=== PATIENT | female | born 1985 | race Caucasian/White ===

== ENCOUNTER → 2019-12-02 13:33 | Outpatient (CLI) | payer MEDICAID, SELFPAY ==
--- NOTE | 2019-12-02 13:42 | MRI_ITS ---
STUDY: MRI CERVICAL SPINE WITHOUT CONTRAST REASON FOR EXAM: Female, 34 years old. spinal stenosis, cervicalgia, radiculopathy pain rt arm Tgt; lt arm TECHNIQUE: Standardized fat and water weighted pulse sequences were obtained in the sagittal and axial planes. COMPARISON: None FINDINGS: Normal foramen magnum and brainstem-cervical cord junction. Normal craniovertebral junction. Normal anterior atlantoaxial articulation. Normal odontoid process. There is straightening of the normal cervical lordosis. C2-3: Minimal disc desiccation otherwise normal. C3-4: Minimal disc desiccation otherwise normal C4-5: Normal endplates. The disc spaces moderately narrowed. A 5.5 mm right paracentral slightly inferior subligamentous extrusion is present resulting in mild compression on the right anterior aspect of the cord and of the exiting nerve root proximal to the foraminal opening. Mild right foraminal stenosis is present but no additional compression is demonstrated within the foramen. Normal left neural foramen. C5-6: Normal endplates. Normal disc height and morphology. Normal central canal and intervertebral neural foramina. C6-7: Normal endplates. Normal disc height and morphology. Normal central canal and intervertebral neural foramina. C7-T1: Normal endplates. Normal disc height, signal and morphology. Normal central canal and intervertebral neural foramina. Normal cervical cord. Normal visualized soft tissue structures. MRI/Spine Cervical (Routine) IMPRESSION: 1. C4-C5 right paracentral disc protrusion resulting and compression on the right and anterior aspect of the cord and compression of the exiting nerve root. Electronically Signed: Jose E Nassar MD at 16:47 EDT , Service support ,
== END ==
DX: M48.02 Spinal stenosis, cervical region (principal); M54.2 Cervicalgia
CPT/HCPCS: 72141

== ENCOUNTER → 2020-04-15 | Outpatient (CLI) | payer MEDICAID, SELFPAY ==
--- NOTE | 2020-04-15 13:32 | MRI_ITS ---
STUDY: MRI BRAIN WITHOUT CONTRAST REASON FOR EXAM: Female, 35 years old. garvey with left eye lid drooping x 1 year TECHNIQUE: Standardized multiplanar fat and water weighted pulse sequences were obtained. COMPARISON: None. FINDINGS: Normal size of the ventricles and extra-axial spaces for the patient''s age. Normal white matter tracts of the supratentorial brain. There is no evidence for recent intracranial ischemia or other cause of cytotoxic edema on diffusion weighted imaging (DWI). Normal T2* images of the brain without demonstrated susceptibility artifact. There is no demonstrated hemosiderin stain. Normal bilateral basal ganglia. Normal thalami. There is no extra-axial fluid accumulation. Normal flow voids within the major intracranial circulation suggesting patency by spin echo criteria. Normal sella turcica, pituitary gland, infundibular stalk, optic chiasm and hypothalamus. Normal tectal plate and pineal gland. Normal midbrain, lester and medulla. Normal cerebellum. Normal basal cisterns. Normal bilateral temporal bones. Normal bilateral internal auditory canals. No demonstrated orbital abnormality, within the constraints of a routine brain study. Normal visualized paranasal sinuses. Normal calvarium and skull base. Normal visualized soft tissue structures. Normal visualized upper cervical spine. MRI/Brain without Contrast IMPRESSION: Normal unenhanced MRI of the brain. Electronically Signed: Evangelist Hopson MD at 15:02 EDT Tel , Service support ,
== END | disposition home or self-care (01) ==
LOC: MRI 13:26
PROVIDERS: Referring Provider Psychiatry & Neurology Sleep Medicine; Visit Provider Psychiatry & Neurology Sleep Medicine
DX: G44.89 Other headache syndrome (principal); H02.402 Unspecified ptosis of left eyelid
CPT/HCPCS: 70551

== ENCOUNTER 2020-09-26 12:15 | Emergency (ER) | payer MEDICAID, SELFPAY ==
[2020-09-26 12:16] VITALS: BP 144/91; PULSE 85; RESP 18; TEMP 36.4; O2SAT 99; BMI 45.1
--- NOTE | 2020-09-26 12:32 | RAD_ITS ---
STUDY: X-RAY - RIGHT SHOULDER REASON FOR EXAM: Female, 35 years old. Injury/Pain TECHNIQUE: For view(s) of the shoulder. COMPARISON: None. FINDINGS: Normal glenohumeral articulation. Normal acromioclavicular joint. Normal acromion. Normal humeral head and visualized proximal humerus. The soft tissue structures are unremarkable. Normal visualized pulmonary apex. RAD/Shoulder min 2 Views IMPRESSION: Normal x-ray examination of the shoulder. Electronically Signed: Evangelist Hopson MD at 12:59 EST Tel , Service support ,
--- NOTE | 2020-09-26 12:33 | ED.DCSUM_ITS ---
- ER Visit Summary Date of Service: 09/26/20 Chief Complaint: Right-sided neck and shoulder pain History of Present Illness: The patient is a 35 F who presents with pain in the right side of her neck and right shoulder that has been getting worse over the past week. Patient denies any trauma or injury. Patient has a history of a herniated disc at C4-5. Patient has been acupuncture for this. Patient states her insurance company denied an injection. Patient states she sees a spine and pain specialist and has an appointment with them next week. Patient denies any new trauma or injury. Patient does admit to some tingling down her right arm. Patient states the pain is worse with certain positions. Patient states nothing seems to be helping with the pain. Physical Examination: Vital signs are stable. Patient is afebrile. Patient is in no acute distress. Strength is 4/5 in the right tricep. Otherwise strength is 5/5 in the upper extremities bilaterally. There is decreased sensation to light touch over the right thumb and index finger. Otherwise sensation is inta ct bilaterally. Deep tendon reflexes were 1+/4 bilaterally in the upper extremities. There is tenderness to palpation over the right cervical paraspinal muscle. There is some mild spasm. There is also tenderness over the right shoulder area and right trapezius muscle. There is no bony crepitance or step-off. There is no obvious deformity. Range of motion was slightly limited in all motions of the right shoulder secondary to pain. Test Results: X-rays of the right shoulder were obtained. There are 4 views. On my interpretation, there is no acute fracture or dislocation. There are no degenerative changes noted. Radiologist also interpreted the x-ray and agrees. Emergency Department Course and Treatment: Patient was given a dose of prednisone here. Patient was given a prescription for prednisone. Patient was instructed to continue her gabapentin as prescribed. Disposition: Discharge home Impression: 1. Right cervical radiculopathy This note was generated with [employer] dictation software. It may contain incorrect words, spelling, and punctuation that were not noted in review of the chart prior to signing ED Disposition - Plan for ED Patient: Disposition: Home or Assisted Living Diagnosis: Right cervical radiculopathy Instructions: ED Radiculopathy, Cervical Prescriptions: predniSONE tablet 60 mg PO DAILY #15 tab [facility]: [facility] Referrals: SAMANTHA GEORGE [Other] - 3-5 Days
[2020-09-26] MEDS: predniSONE 20 MG Tablet 60 MG PO (13:30)
== END 2020-09-26 13:40 | disposition home or self-care (01) ==
LOC: ED 13:09
PROVIDERS: Emergency Provider Emergency Medicine
DX: M54.12 Radiculopathy, cervical region (principal)
CPT/HCPCS: 73030; 99283